=== PATIENT | female | born 1980 | race Caucasian/White ===

== ENCOUNTER 2017-10-12 08:01 | Outpatient (CLI) | payer MEDICAID | END 2017-10-12 08:02 | disposition home or self-care (01) | LOC: BICULT 08:01 | PROVIDERS: ATTEND Family Medicine | DX: N83.201 Unspecified ovarian cyst, right side (principal) | CPT/HCPCS: 76856; 93976 ==

== ENCOUNTER 2019-05-25 08:10 | Outpatient (CLI) | payer MEDICAID ==
--- NOTE | 2019-05-25 09:24 | MMO ---
Bilateral MAMMO Bilat Screen DDI. CLINICAL HISTORY: Patient is 38 years old and is seen for screening. The patient has the following family history of breast cancer: maternal grandmother. The patient has no personal history of cancer. VIEWS: The views performed were: bilateral craniocaudal and bilateral mediolateral oblique. This study has been interpreted with the assistance of computer-aided detection. MAMMOGRAM FINDINGS: There are scattered fibroglandular densities. There is an oval mass with obscured margins seen in the upper-outer region of the right breast. The patient reports a history of a cyst in this breast. Prior imaging is not avalailable for review. In the left breast, there are no suspicious masses, calcifications or areas of architectural distortion. IMPRESSION: MASS IN THE RIGHT BREAST REQUIRES ADDITIONAL EVALUATION. AN ULTRASOUND EXAM IS RECOMMENDED. ACR BI-RADS Category 0 - Incomplete: Need additional imaging evaluation. [facility] will notify the patient of the need for additional imaging services. MAMMOGRAPHY NOTE: 1. A negative mammogram report should not delay a biopsy if a dominant of clinically suspicious mass is present. 2. Approximately 10% to 15% of breast cancers are not detected by mammography. 3. Adenosis and dense breasts may obscure an underlying neoplasm. Reported by: JOANN RIZO MD Electonically Signed: [id number]
== END 2019-05-25 08:11 | disposition home or self-care (01) ==
LOC: BICMAMMO 08:10
PROVIDERS: ATTEND Family Medicine
DX: Z12.31 Encounter for screening mammogram for malignant neoplasm of breast (principal); Z80.3 Family history of malignant neoplasm of breast; N63.10 Unspecified lump in the right breast, unspecified quadrant
CPT/HCPCS: 77067

== ENCOUNTER 2019-05-29 07:33 | Outpatient (CLI) | payer MEDICAID ==
--- NOTE | 2019-05-29 08:57 | ULT ---
LIMITED RIGHT BREAST ULTRASOUND: Date: 05/29/19 PROVIDED CLINICAL HISTORY: Right breast mass. FINDINGS: Limited sonographic interrogation was performed of the right breast in the region of mammographic con cern. There is a 2.4 x 1.6 x 1.8 cm oval, wider than tall, smoothly marginated mass at the 11 o'clock position of the right breast, demonstrating a hypoechoic appearance with respect to the surrounding breast parenchyma. The patient describes a corresponding palpable abnormality in this region for a lo ng period of time without change. The clinical history and sonographic findings are compatible with f ibroadenoma. IMPRESSION: BI-RADS Category 3 - Probably benign findings. 6 month follow-up right breast ultrasound is recommend ed. POS: OFF
== END 2019-05-29 07:34 | disposition home or self-care (01) ==
LOC: BICULT 07:33
PROVIDERS: ATTEND Family Medicine
DX: N63.10 Unspecified lump in the right breast, unspecified quadrant (principal)

== ENCOUNTER 2019-12-21 08:39 | Outpatient (CLI) | payer MEDICAID ==
--- NOTE | 2019-12-21 09:05 | ULT ---
EXAM: US Breast Limited Rt PROVIDED CLINICAL HISTORY: Right breast mass COMPARISON: 05/29/2019 FINDINGS: Circumscribed, oval, hypoechoic mass at the 11:00 position of the right breast is redemonstrated, wit hout evidence for significant interval change. IMPRESSION: BI-RADS Category 3-probably benign findings. The patient is due in 6 months for bilateral mammography , and follow-up ultrasound can be performed at that time as necessary. BI-RADS 3 -- probably benign, 6-month follow-up
--- NOTE | 2019-12-21 09:20 | ULT ---
Pelvic sonogram transabdominal imaging with duplex evaluation HISTORY: Ovarian cyst. Follow-up. COMPARISON: 10/12/2017. FINDINGS: Urinary bladder is incompletely distended. Uterus has a homogeneous echotexture and is 12.2 cm length. Endometrium is 1.3 cm. No free fluid within the pelvis. Right ovary measures up to 9.4 cm length, containing a large cyst that is 7.4 x 6.8 x 6.3 cm greatest diameters (previously 5.7 cm). Small eccentric focus of mural nodularity is 1.2 cm greatest diameter. Good color and spectral Doppler flow within the ovaries. Left ovary is 3.5 cm length with a normal appearance. IMPRESSION : Interval enlargement of the slightly complex very large right ovarian cyst. Please consider gynecolog ic evaluation.
== END 2019-12-21 08:40 | disposition home or self-care (01) ==
LOC: BICULT 08:39
PROVIDERS: ATTEND Family Medicine
DX: N83.201 Unspecified ovarian cyst, right side (principal); R92.8 Other abnormal and inconclusive findings on diagnostic imaging of breast
CPT/HCPCS: 76856; 93976

== ENCOUNTER 2020-06-06 10:35 | Outpatient (CLI) | payer MEDICAID ==
--- NOTE | 2020-06-06 11:15 | MMO ---
Bilateral MAMMO Bilat Screen DDI. CLINICAL HISTORY: Patient is 39 years old and is seen for screening. The patient has the following family history of breast cancer: maternal grandmother. The patient has no personal history of cancer. VIEWS: The views performed were: bilateral craniocaudal and bilateral mediolateral oblique. FILMS COMPARED: The present examination has been compared to prior imaging studies performed at [facility] on 05/25/2019, 05/29/2019 and 12/21/2019. This study has been interpreted with the assistance of computer-aided detection. MAMMOGRAM FINDINGS: There are scattered fibroglandular densities. There is a stable oval mass with circumscribed margins seen in the upper-outer region of the right breast. This was previously characterized by ultrasound as a probably benign finding. In the left breast, there are no suspicious masses, calcifications or areas of architectural distortion. IMPRESSION: STABLE MASS IN THE RIGHT BREAST IS PROBABLY BENIGN. FOLLOW-UP IN 6 MONTHS IS RECOMMENDED. ACR BI-RADS Category 3 - Probably benign finding - short interval follow-up suggested. [facility] will notify the patient of the need for additional imaging services. MAMMOGRAPHY NOTE: 1. A negative mammogram report should not delay a biopsy if a dominant of clinically suspicious mass is present. 2. Approximately 10% to 15% of breast cancers are not detected by mammography. 3. Adenosis and dense breasts may obscure an underlying neoplasm. Reported by: JOANN RIZO MD Electonically Signed: [id number]
== END 2020-06-06 10:36 | disposition home or self-care (01) ==
LOC: BICMAMMO 10:35
PROVIDERS: ATTEND Family Medicine
DX: Z12.31 Encounter for screening mammogram for malignant neoplasm of breast (principal); Z80.3 Family history of malignant neoplasm of breast; N63.10 Unspecified lump in the right breast, unspecified quadrant
CPT/HCPCS: 77067

== ENCOUNTER 2020-08-22 08:36 | Outpatient (CLI) | payer MEDICAID ==
--- NOTE | 2020-08-22 09:20 | ULT ---
US Pelvic Transvag W Doppler History: Ovarian cyst Comparison: Pelvic ultrasound December 2019 Findings: Real-time grayscale, color and spectral analysis of the pelvis performed transabdominal and transvaginal approach. Similar appearance of the right ovarian mass which measures up to 6.3 cm in size. There is low-grade homogeneous internal echoes. No papillary projections. Hypervascular flow to both ovaries. There is a small 1.7 cm cyst. No free fluid within the pelvis. Endometrial thickness is 1.2 cm. The uterus measures 10.7 x 4.9 x 4.9 cm. Impression: Similar size of the right ovarian mass which is hypoechoic with homogeneous low-grade int ernal echoes without definite papillary projections. Findings are suggestive of an endometrioma. Pelvic MRI with and without contrast would be more definitive.
== END 2020-08-22 08:37 | disposition home or self-care (01) ==
LOC: BICULT 08:36
PROVIDERS: ATTEND Family Medicine
DX: N83.201 Unspecified ovarian cyst, right side (principal); N83.9 Noninflammatory disorder of ovary, fallopian tube and broad ligament, unspecified
CPT/HCPCS: 76856

== ENCOUNTER 2020-12-10 08:33 | Outpatient (CLI) | payer MEDICAID | END 2020-12-10 08:34 | disposition home or self-care (01) | LOC: BICMAMMO 08:33 | PROVIDERS: ATTEND Family Medicine | DX: R92.8 Other abnormal and inconclusive findings on diagnostic imaging of breast (principal); N63.11 Unspecified lump in the right breast, upper outer quadrant | CPT/HCPCS: G0279 ==

== ENCOUNTER 2020-12-31 16:04 | Emergency (ER) | payer MEDICAID, SELFPAY ==
[2020-12-31 16:53] LABS: #Eosinphils 0.3 thou/uL (0.0-0.7); #Lymphocytes 1.8 thou/uL (1.20-3.40); #Monocytes 0.6 thou/uL (0.11-0.59); #Neutrophils 5.2 thou/uL (1.40-6.50); %Basophils 0.2 % (0.0-1.0); %Eosinophils 3.9 % (0.0-10.0); %Lymphocytes 22.6 % (21.0-51.0); %Monocytes 7.2 % (0.0-10.0); %Neutrophils 66.2 % (42.0-75.0); Hemoglobin 13.5 g/dL (12.0-16.0); Mean Corpuscular HGB CONC 34.7 g/dL (32.0-36.0); Mean Corpuscular Hemoglobin 32.1 pg (27.0-31.0); Mean Corpuscular Volume 92.7 fL (78.0-98.0); Mean Platelet Volume 7.6 fL (7.4-10.4); Platelet Count 297 thou/uL (130-400); RBC Distribution Width 12.5 % (11.5-14.5); Red Blood Cell (RBC) Count 4.19 mill/uL (4.20-5.40); White Blood Cell (WBC) Count 7.9 thou/uL (4.8-10.8)
[2020-12-31 17:04] LABS: BHCG - Serum Negative (NEGATIVE); Pregs Control Background? CLEAR/WHITE (CLR/WHITE); Pregs Control Bar Appear? YES (CONTROL BAR)
[2020-12-31 17:37] LABS: Bacteria/HPF 4+ HPF (None Seen); Bilirubin Negative (Negative); Blood, Urine 2+ (Negative); Clarity Clear (Clear); Glucose, Urine (Dipstick) Normal (Negative); Ketone, Urine Negative (Negative); Leukocyte Negative Leu/uL (Negative); Nitrite Negative (Negative); Protein, Urine (Dipstick) Negative (Neg-Trace); RBC/HPF 0-3 HPF (0-3); Specific Gravity, Urine 1.008 (1.002-1.036); Urobilinogen Normal mg/dL (Less than 2); WBC/HPF 0-3 HPF (0-3)
== END 2020-12-31 19:18 | disposition home or self-care (01) ==
LOC: ERS 16:04
DX: N83.8 Other noninflammatory disorders of ovary, fallopian tube and broad ligament (principal); Z79.899 Other long term (current) drug therapy
CPT/HCPCS: 36415; 76856; 81003; 81015; 84703; 85025

== ENCOUNTER 2021-11-12 00:40 | Emergency (ER) | payer SELFPAY ==
[2021-11-12] MEDS ORDERED: Ketorolac Tromethamine 30 MG/ML VIAL ONE (01:12)
[2021-11-12] MEDS ORDERED: Ondansetron PF 4 MG/2 ML Vial ONE ×2 (01:31→03:09)
[2021-11-12 01:34] LABS: #Eosinphils 0.1 thou/uL (0.0-0.7); #Lymphocytes 1.2 thou/uL (1.20-3.40); #Monocytes 0.3 thou/uL (0.11-0.59); %Basophils 0.5 % (0.0-1.0); %Eosinophils 0.9 % (0.0-10.0); %Lymphocytes 12.2 % (21.0-51.0); %Monocytes 3.1 % (0.0-10.0); %Neutrophils 83.4 % (42.0-75.0); Hemoglobin 13.6 g/dL (12.0-16.0); Mean Corpuscular HGB CONC 32.6 g/dL (32.0-36.0); Mean Corpuscular Hemoglobin 30.7 pg (27.0-31.0); Mean Corpuscular Volume 94.4 fL (78.0-98.0); Mean Platelet Volume 7.7 fL (7.4-10.4); Platelet Count 297 thou/uL (130-400); RBC Distribution Width 12.5 % (11.5-14.5); Red Blood Cell (RBC) Count 4.43 mill/uL (4.20-5.40); White Blood Cell (WBC) Count 9.6 thou/uL (4.8-10.8)
[2021-11-12 01:36] LABS: Bilirubin Negative (Negative); Blood, Urine Negative (Negative); Clarity Extra Turbid (Clear); Glucose, Urine (Dipstick) 30 mg/dL (Negative); Ketone, Urine Negative (Negative); Leukocyte Negative Leu/uL (Negative); Nitrite Negative (Negative); Protein, Urine (Dipstick) 20 mg/dL (Neg-Trace); Specific Gravity, Urine 1.027 (1.002-1.036); Urobilinogen Normal mg/dL (Less than 2); pH, Urine 7.5 (5.0-9.0)
[2021-11-12 01:39] LABS: Pregnancy Test - Urine (BHCG) Negative (Negative); Pregu Control Background? CLEAR/WHITE (CLR/WHITE); Pregu Control Bar Appear? YES (CONTROL BAR); Specific Gravity 1.027 (1.002-1.036)
[2021-11-12 01:54] LABS: ALT (SGPT) 12 U/L (8-55); AST (SGOT) 11 U/L (5-34); Albumin 4.2 g/dL (3.5-5.0); Alkaline Phosphatase 59 U/L (40-110); Anion Gap 13 mmol/L (10-20); BUN (Urea Nitrogen) 10 mg/dL (7.0-18.7); Bilirubin, Total 0.7 mg/dL (0.2-1.2); Calc. Creatinine Clearance 0 mL/min (70-130); Carbon Dioxide 23 mmol/L (22-29); Chloride 105 mmol/L (98-107); Globulin 2.9 g/dL (2.4-3.5); Glucose 158 mg/dL (70-105); Protein, Total 7.1 g/dL (6.0-8.3); Sodium 137 mmol/L (136-145)
== END 2021-11-12 04:49 | disposition home or self-care (01) ==
LOC: ERS 00:40
DX: N83.201 Unspecified ovarian cyst, right side (principal)
CPT/HCPCS: 74177; 76856; 80053; 81003; 81025; 83690; 85025; 87086; 96374; 96375; 96376; J1885; J2405

== ENCOUNTER 2022-02-18 09:45 | Outpatient (CLI) | payer MEDICAID | END 2022-02-18 09:46 | disposition home or self-care (01) | LOC: BICMAMMO 09:45 | PROVIDERS: ATTEND Family Medicine | DX: R92.8 Other abnormal and inconclusive findings on diagnostic imaging of breast (principal) | CPT/HCPCS: 77066; G0279 ==

== ENCOUNTER 2022-03-14 08:42 | Emergency (ER) | payer MEDICAID, SELFPAY ==
[2022-03-14] MEDS ORDERED: Lidocaine 1% PF 5 ML VIAL ONE (09:04)
[2022-03-14] MEDS ORDERED: HYDROcodone/Acetaminophen 5/325 mg Tablet ONE (09:10)
== END 2022-03-14 10:43 | disposition home or self-care (01) ==
LOC: ERS 08:42
DX: L05.01 Pilonidal cyst with abscess (principal); D64.9 Anemia, unspecified
CPT/HCPCS: 10080